=== PATIENT | male | born 1970 | race Caucasian/White ===

== ENCOUNTER 2019-06-20 06:02 | Outpatient (CLI) | payer MEDICAID | END 2019-06-20 06:03 | disposition EMS.NT | LOC: EMS 06:02 | PROVIDERS: ATTEND Surgery | DX: R10.30 Lower abdominal pain, unspecified (principal) ==

== ENCOUNTER 2019-07-28 08:00 | Outpatient (CLI) | payer MEDICARE, MEDICAID ==
[2019-07-28 18:59] LABS: BASOPHILS % (AUTO) 0.4 %; EOSINOPHILS # (AUTO) 0.2 10^3/uL (0.0-0.7); EOSINOPHILS % (AUTO) 2.3 %; HGB - HEMOGLOBIN 14.3 g/dL (14.0-18.0); LYMPHOCYTES # (AUTO) 1.4 10^3/uL (1.5-3.5); LYMPHOCYTES % (AUTO) 18.4 %; MEAN CORPUSCULAR HEMOGLOBIN 30.2 pg (27.0-31.0); MEAN CORPUSCULAR HGB CONC 32.8 g/dL (32.0-36.0); MEAN CORPUSCULAR VOLUME 92.2 fL (80.0-94.0); MEAN PLATELET VOLUME 9.8 fL (7.4-11.4); MONOCYTES # (AUTO) 0.8 10^3/uL (0.0-1.0); MONOCYTES % (AUTO) 10.2 %; NEUTROPHILS % (AUTO) 68.3 %; PLT - PLATELET COUNT 279 10^3/uL (130-450); RED BLOOD COUNT 4.73 10^6/uL (4.70-6.10); RED CELL DISTRIBUTION WIDTH 12.9 % (12.0-15.0); WHITE BLOOD COUNT 7.4 x10^3/uL (4.8-10.8)
[2019-07-28 19:38] LABS: HB2 TOTAL 14.9 g/dL; HEMOGLOBIN A1C 0.55 g/dL; HEMOGLOBIN A1C % 5.5 % (4.6-6.2)
[2019-07-28 20:40] LABS: ALBUMIN 4.2 g/dL (3.2-5.5); ALBUMIN/GLOBULIN RATIO 1.6 (1.0-2.2); ALKALINE PHOSPHATASE 68 IU/L (42-121); ALT ALANINE AMINOTRANSFERASE 28 IU/L (10-60); AST ASPARTATE AMINOTRANSFERASE 40 IU/L (10-42); BILIRUBIN,TOTAL 1.8 mg/dL (0.2-1.0); BUN - BLOOD UREA NITROGEN 16 mg/dL (6-20); CALCIUM 8.6 mg/dL (8.5-10.3); CARBON DIOXIDE - CO2 22 mmol/L (21-32); CHLORIDE 104 mmol/L (101-111); CHOL/HDL RATIO 2.3 (<5.0); CHOLESTEROL 148 mg/dL; CREATININE 0.8 mg/dL (0.6-1.2); GFR - MDRD 103 (>89); GLUCOSE 90 mg/dL (70-100); HDL CHOLESTEROL 63 mg/dL; LDL CHOLESTEROL,CALCULATED 76 mg/dL; LDL/HDL RATIO 1.2 (<3.6); SODIUM 135 mmol/L (135-145); TOTAL PROTEIN 6.9 g/dL (6.7-8.2); VLDL CHOLESTEROL 9 mg/dL
== END 2019-07-28 23:59 | disposition home or self-care (01) ==
LOC: LAB.WCP 08:00
PROVIDERS: ATTEND Family Medicine
DX: I10 Essential (primary) hypertension (principal); Z79.899 Other long term (current) drug therapy; F41.9 Anxiety disorder, unspecified
CPT/HCPCS: 36415; 80053; 80061; 83036; 83721; 84443; 85025

== ENCOUNTER 2019-09-15 16:34 | Emergency (ER) | payer MEDICARE, MEDICAID ==
[2019-09-15 17:45] VITALS: BP 149/121
== END 2019-09-15 18:30 | disposition left against medical advice (07) ==
LOC: ED 16:34
DX: Z53.21 Procedure and treatment not carried out due to patient leaving prior to being seen by health care provider (principal)

== ENCOUNTER 2019-09-16 05:41 | Outpatient (CLI) | payer MEDICARE, MEDICAID | END 2019-09-16 05:42 | disposition critical access hospital (66) | LOC: EMS 05:41 | PROVIDERS: ATTEND Surgery | DX: S80.862A Insect bite (nonvenomous), left lower leg, initial encounter (principal); S80.861A Insect bite (nonvenomous), right lower leg, initial encounter; R25.3 Fasciculation; F41.9 Anxiety disorder, unspecified; W57.XXXA Bitten or stung by nonvenomous insect and other nonvenomous arthropods, initial encounter; Y92.009 Unspecified place in unspecified non-institutional (private) residence as the place of occurrence of the external cause | CPT/HCPCS: A0425; A0429 ==

== ENCOUNTER 2019-09-16 05:54 | Emergency (ER) | payer MEDICARE, MEDICAID ==
[2019-09-16 06:01] VITALS: BP 126/83
[2019-09-16] MEDS ORDERED: BACITRACIN ZINC OINT 1 PACKET TOP STA (06:08)
--- NOTE | 2019-09-16 06:12 | ED Physician Documentation ---
PD HPI SKIN - Stated complaint Stated Complaint: BUG BITES, HUNGRY - Chief complaint Chief Complaint: Wound - Additional information Additional information: This is a 49-year-old male with a history of schizophrenia, past meth use, but none currently, who presents due to concern for bug bites. Patient thinks the bites are either from fleas or bug bites from a used mattress he bought and has been sleeping on. He noticed a couple spots on his legs yesterday, they were itchy, and he circled them to see if anything was moving under his skin. He is not seen any movement, but he was concerned about the several bites on his skin so he decided to come in and get checked out. He actually called EMS to give him a ride here. He denies any recent meth use. Review of Systems Constitutional: denies: Fever Skin: reports: Other (Insect bites/spots on legs) PD PAST MEDICAL HISTORY - Past Medical History Psych: Depression, Anxiety, Schizophrenia - Past Surgical History Past Surgical History: No - Present Medications Home Medications: Ambulatory Orders Medication Instructions Recorded Confirmed Risperidone 40 mg PO QPM 09/16/19 Bacitracin Zinc Oint 1 applic TOP BID #1 tube 09/16/19 Pantoprazole Sodium 20 mg PO DAILY 09/16/19 09/16/19 Propranolol [Inderal] 40 mg PO BID 09/16/19 09/16/19 Venlafaxine HCl [Venlafaxine HCl 150 mg PO DAILY 09/16/19 09/16/19 ER] - Allergies Allergies/Adverse Reactions: Allergies Allergy/AdvReac Type Severity Reaction Status Date / Time No Known Drug Allergies Allergy Verified 09/16/19 06:14 - Social History Smoking Status: Current every day smoker Does the pt have substance abuse?: Yes Substance Use and Type: Marijuana Additional Social History: Past meth use PD ED PE NORMAL - General General: Alert and oriented X 3, Other (Fidgety) - HEENT HEENT: Atraumatic - Cardiac Cardiac: RRR - Respiratory Respiratory: No respiratory distress - Abdomen Abdomen: Non distended - Extremities Extremities: No deformity, Other (There are several scattered isolated erythematous spots that are 1 to 2 mm in diameter, and slightly raised. There are no vesicles or areas of necrosis, no drainage) - Neuro Neuro: Alert and oriented X 3, No motor deficit, No sensory deficit Results - Vitals Vitals: Vital Signs - 24 hr 09/16/19 06:00 Temperature 36.4 C L Heart Rate 99 Respiratory 22 Rate Blood Pressure 126/83 H O2 Saturation 97 Oxygen O2 Source Room air PD MEDICAL DECISION MAKING - ED course Complexity details: considered differential (Insect bite, cellulitis, infection, meth use, schizophrenia) ED course: Pt is non-toxic on exam, he points out several very small red papules on his lower legs that he was concerned about. This may be insect bites, but appear very minor. He does have one small abrasion on his heel for which I provided bacitracin. He has no rash elsewhere. He has an odd affect and does appear overly concerned about the small possible insect bites, but is cooperative, with linear thoghts, with no SI or HI, no hallucinations. He certainly has capacity and does not appear gravely disabled. I discussed care for the spots, checking for insects, and control of bedbugs or fleas if he finds them. Pt agrees and was discharged home. Departure - Departure Disposition: 01 Home, Self Care Clinical Impression: Insect bite Qualifiers: Encounter type: initial encounter Site of insect bite: lower leg Laterality: left Qualified Code(s): S80.862A - Insect bite (nonvenomous), left lower leg, initial encounter Condition: Good Follow-Up: Kristine Jacinto PA [Primary Care Provider] - Within 1 week (If having any persistent symptoms) Prescriptions: Bacitracin Zinc Oint 1 applic TOP BID #1 tube Comments: You may have several insect bites on your legs, However I do not see signs of any serious infection at this time. Please check your belongings and your mattress carefully for signs of insect infestation, If you see any fleas or bedbugs the should be treated to avoid further bites to your legs. If you developing worsening rash, or other concerning symptoms you may return to the emergency department. I am prescribing you some bacitracin ointment which you can put on the small wound on your heel. Please follow-up with your primary care provider Discharge Date/Time: 09/16/19 06:28
== END 2019-09-16 06:28 | disposition home or self-care (01) ==
LOC: EDUNIT# → ED 05:54
DX: S80.862A Insect bite (nonvenomous), left lower leg, initial encounter (principal); S80.861A Insect bite (nonvenomous), right lower leg, initial encounter; S90.819A Abrasion, unspecified foot, initial encounter; X58.XXXA Exposure to other specified factors, initial encounter; F17.200 Nicotine dependence, unspecified, uncomplicated
CPT/HCPCS: 99283; 99284

== ENCOUNTER 2021-11-08 14:38 | Outpatient (CLI) | payer MEDICARE ==
--- NOTE | 2021-11-08 16:12 | XRAY Report ---
PROCEDURE: Finger(s) RT INDICATIONS: R MIDDLE FINGER PUNCTURE WOUND TECHNIQUE: AP hand, 2 views of the third finger(s) acquired. COMPARISON: None FINDINGS: Bones: No fractures or dislocations. No suspicious bony lesions. Soft tissues: No suspicious soft tissue calcifications. IMPRESSION: No acute fracture. No osseous lesion. If symptoms and/or clinical suspicion for pathology continue, f urther assessment with repeat plain films, or advanced imaging (e.g., CT, MRI, or bone scan) is recom mended for further assessment. Reviewed by: Nilton Freeman MD on 11/08/2021 4:10 PM PST Approved by: Nilton Freeman MD on 11/08/2021 4:10 PM PST Station ID: [id number]
== END 2021-11-08 23:59 | disposition home or self-care (01) ==
LOC: DI.N 14:38
PROVIDERS: ATTEND Physician Assistant Medical
DX: S61.232A Puncture wound without foreign body of right middle finger without damage to nail, initial encounter (principal)

== ENCOUNTER 2022-04-03 08:00 | Outpatient (CLI) | payer MEDICARE ==
--- NOTE | 2022-04-05 08:24 | XRAY Report ---
PROCEDURE: Hand 3 View RT INDICATIONS: HAND PAIN TECHNIQUE: 3 views of the hand(s) acquired. COMPARISON: None FINDINGS: Joint space is maintained. No arthritic features. Specifically, no osteophytosis, subchondral scleros is, subchondral cystic change, periarticular lucencies or erosions. Regional soft tissues are normal. IMPRESSION: No acute finding were significant arthritic features. Reviewed by: Efrain Hastings MD on 04/05/2022 8:23 AM PDT Approved by: Efrain Hastings MD on 04/05/2022 8:23 AM PDT Station ID: [id number]
== END 2022-04-03 23:59 | disposition home or self-care (01) ==
LOC: DI.WOS 08:00
PROVIDERS: ATTEND Physician Assistant
DX: L08.9 Local infection of the skin and subcutaneous tissue, unspecified (principal)

== ENCOUNTER 2022-08-02 07:14 | Day surgery (SDC) | payer MEDICARE ==
[2022-08-02] MEDS ORDERED: LACTATED RINGERS 1,000 ML IV ONE ×2 (07:36→08:56)
[2022-08-02] MEDS ORDERED: PROPOFOL 200 MG/20 ML VIAL IVP ONE (07:55)
--- NOTE | 2022-08-02 08:13 | ANESTHESIA ---
Pre-Anesthesia VS, & Labs - Diagnosis GERD - Procedure EGD Vital Signs: Temp Pulse Resp BP Pulse Ox O2 Flow Rate 36 C L 59 L 20 139/90 H 98 08/02/22 07:29 08/02/22 07:29 08/02/22 07:29 08/02/22 07:29 08/02/22 07:29 Height: 5 ft 5 in Weight (kg): 75.5 kg Body Mass Index: 27.6 BMI Classification: Overweight - NPO >8 hours Home Medications and Allergies Pantoprazole Sodium 40 mg PO DAILY 09/16/19 Propranolol [Inderal] 40 mg PO BID 09/16/19 Venlafaxine HCl [Venlafaxine HCl ER] 150 mg PO DAILY 09/16/19 risperiDONE [Risperdal] 4 mg PO QPM 11/04/19 Allergies/Adverse Reactions: Allergies Allergy/AdvReac Type Severity Reaction Status Date / Time quetiapine [From Seroquel] AdvReac Unknown Verified 04/18/22 12:39 Anes History & Medical History - Anesthetic History Anesthesia Complications: reports: No previous complications - Medical History Cardiovascular: reports: Hypertension, Murmur Pulmonary: reports: Shortness of breath, Sleep apnea Gastrointestinal: reports: Ulcers, Chronic constipation Urinary: reports: None Musculoskeletal: reports: None Endocrine/Autoimmune: reports: None Skin: reports: None Smoking Status: Current every day smoker Psychosocial: reports: Other (schizophrenia) - Surgical History Eyes Ears Nose Throat (EENT): reports: Myringotomy (tubes) Exam General: Alert, Oriented x3 Dental: Poor dentition (several missing, none obviously loose) Mouth Opening: Greater than 4 Fingerbreadths Neck Mobility: Normal Respiratory: Lungs clear Cardiovascular: Regular rate, No murmurs Plan Anesthesia Type: Total IV Consent for Procedure(s) Verified and Reviewed: Yes Code Status: Attempt Resuscitation ASA classification: 2-Mild systemic disease Is this case an emergency?: No
--- NOTE | 2022-08-02 08:37 | HISTORY & PHYSICAL EXAMINATION ---
Chief Complaint - Chief Complaint Chief Complaint: heartburn History of Present Illness - History Obtained From Records Reviewed: yes History obtained from: pt Exam Limitations: none - History of Present Illness HPI Comment/Other: bad heart burn for 3 years History - Past Medical History Cardiovascular: reports: Hypertension, Murmur Respiratory: reports: Shortness of breath, Sleep apnea Endocrine/Autoimmune: reports: None GI: reports: Ulcers, Chronic constipation : reports: None HEENT: reports: Chronic vision loss Psych: reports: Depression, Anxiety, Panic attacks Musculoskeletal: reports: None Derm: reports: None MRSA Hx?: No - Past Surgical History HEENT: reports: Myringotomy (tubes) - Family & Social History Social History Notes: Past meth use - POLST Patient has POLST: No Meds/Allgy - Home Medications Home Medications: Ambulatory Orders Medication Instructions Recorded Confirmed Pantoprazole Sodium 40 mg PO DAILY 09/16/19 08/01/22 Propranolol [Inderal] 40 mg PO BID 09/16/19 08/01/22 Venlafaxine HCl [Venlafaxine HCl 150 mg PO DAILY 09/16/19 08/01/22 ER] risperiDONE [Risperdal] 4 mg PO QPM 11/04/19 08/01/22 - Allergies Allergies/Adverse Reactions: Allergies Allergy/AdvReac Type Severity Reaction Status Date / Time quetiapine [From Seroquel] AdvReac Unknown Verified 04/18/22 12:39 Review of Systems - Other Findings Other Findings: 10 pt ros as above otherwise unremarkable Exam - Vital Signs Reviewed Vital Signs: Yes Vital Signs: Vital Signs x48h Temp Pulse Resp BP Pulse Ox 08/02/22 07:29 36 C L 59 L 20 139/90 H 98 - Physical Exam General Appearance: positive: No acute distress, Alert Eyes Bilateral: positive: PERRL, EOMI ENT: positive: No signs of dehydration Neck: positive: No JVD, Trachea midline Respiratory: positive: No respiratory distress, Breath sounds nml Abdomen: positive: Non-tender, No distention Neurologic/Psychiatric: positive: Oriented x3 Conclusion/Plan - Problem List (1) GERD (gastroesophageal reflux disease) Conclusion/Plan: plan egd. parq held and consent obtained
[2022-08-02] MEDS ORDERED: LIDOCAINE-PF 2% 10 ML AMP SUBQ ONE (08:47)
[2022-08-02 09:52] VITALS: BP 118/90
--- NOTE | 2022-08-02 09:57 | ANESTHESIA POST OP EVALUATION ---
Anesthesia Post Eval - Post Anesthesia Eval Vitals: Last Vital Signs Temp 36 C L 08/02/22 09:46 Pulse 72 08/02/22 09:46 Resp 16 08/02/22 09:46 BP 118/90 H 08/02/22 09:46 Pulse Ox 95 08/02/22 09:46 O2 Flow Rate CV Function Including HR & BP: Stable Pain Control: Satisfactory Nausea & Vomiting: Negative Mental Status: Baseline Respiratory Status: Airway Patent Hydration Status: Satisfactory Anesthesia Complications: None
== END 2022-08-02 07:15 | disposition home or self-care (01) ==
LOC: SDS 07:14
PROVIDERS: ATTEND Surgery
PROC: 0DB78ZX Excision of Stomach, Pylorus, Via Natural or Artificial Opening Endoscopic, Diagnostic (ICD-10-PCS; 2022-08-02)
PROC: 0DB38ZX Excision of Lower Esophagus, Via Natural or Artificial Opening Endoscopic, Diagnostic (ICD-10-PCS; principal; 2022-08-02 08:25)
DX: K21.00 Gastro-esophageal reflux disease with esophagitis, without bleeding (principal); K44.9 Diaphragmatic hernia without obstruction or gangrene; I10 Essential (primary) hypertension; G47.30 Sleep apnea, unspecified; F17.200 Nicotine dependence, unspecified, uncomplicated
CPT/HCPCS: 43239; J7120

== ENCOUNTER → 2022-09-07 | Outpatient (CLI) | payer MEDICARE | END | disposition critical access hospital (66) | LOC: EMS 15:40 | DX: R10.13 Epigastric pain (principal); R07.89 Other chest pain | CPT/HCPCS: A0425; A0429 ==

== ENCOUNTER 2023-12-11 14:29 | Outpatient (CLI) | payer MEDICARE ==
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
== END 2023-12-11 14:30 | disposition home or self-care (01) ==
LOC: DI 14:29
PROVIDERS: ATTEND Family Medicine
DX: M47.812 Spondylosis without myelopathy or radiculopathy, cervical region (principal); M47.816 Spondylosis without myelopathy or radiculopathy, lumbar region; V89.2XXS Person injured in unspecified motor-vehicle accident, traffic, sequela

== ENCOUNTER 2023-12-13 17:32 | Outpatient (CLI) | payer MEDICARE ==
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
== END 2023-12-13 17:33 | disposition home or self-care (01) ==
LOC: DI 17:32
PROVIDERS: ATTEND Family Medicine
DX: G44.309 Post-traumatic headache, unspecified, not intractable (principal); S06.9X0S Unspecified intracranial injury without loss of consciousness, sequela